=== PATIENT | female | born 1995 | race Caucasian/White ===

== ENCOUNTER 2019-01-18 23:00 | Emergency (ER) | payer BC ==
[2019-01-19] MEDS ORDERED: NORMAL SALINE 1000 ML 1,000 ML IV ONE (01:25)
--- NOTE | 2019-01-19 01:30 | ER Document Report ---
ED GI/ - General Chief Complaint: OB Problem (<20wks) Stated Complaint: ABDOMINAL CRAMPING Time Seen by Provider: 01/19/19 01:10 Primary Care Provider: DENI SAENZ MD [Primary Care Provider] - Follow up as needed Notes: Patient is a 23-year-old female, G1, P0 at 18 weeks gestation by first trimester ultrasound, that comes emergency department for chief complaint of mid to lower abdominal/pelvic cramping and possible small amount of spotting noticed when wiping after the bathroom earlier this evening. Patient also states she has had some waves of nausea and she felt lightheaded earlier but this past. She denies headache, shortness of breath, chest pain, flank pain, passage of fluids. She denies any current symptoms. She states she believes she has felt the baby move today but she is not sure. TRAVEL OUTSIDE OF THE [place] IN LAST 30 DAYS: No Past Medical History - General Information source: Patient - Social History Smoking Status: Never Smoker Frequency of alcohol use: None Drug Abuse: None Lives with: Family Family History: Reviewed & Not Pertinent Psychiatric Medical History: Reports: Hx Anxiety, Hx Depression - Immunizations Immunizations up to date: Yes Hx Diphtheria, Pertussis, Tetanus Vaccination: Yes Review of Systems - Review of Systems Constitutional: No symptoms reported EENT: No symptoms reported Cardiovascular: No symptoms reported Respiratory: No symptoms reported Gastrointestinal: No symptoms reported Genitourinary: No symptoms reported Female Genitourinary: See HPI Musculoskeletal: No symptoms reported Skin: No symptoms reported Hematologic/Lymphatic: No symptoms reported Neurological/Psychological: No symptoms reported Physical Exam - Vital signs Vitals: Temp Pulse Resp BP Pulse Ox 97.9 F 93 18 114/60 97 01/18/19 23:14 01/18/19 23:14 01/18/19 23:14 01/18/19 23:14 01/18/19 23:14 - Notes Notes: GENERAL: Alert, interacts well. No acute distress. HEAD: Normocephalic, atraumatic. EYES: Pupils equal, round, and reactive to light. Extraocular movements intact. ENT: Oral mucosa moist, tongue midline. Oropharynx unremarkable. Airway patent. LUNGS: Clear to auscultation bilaterally, no wheezes, rales, or rhonchi. No respiratory distress. HEART: Regular rate and rhythm. No murmur ABDOMEN: Gravid abdomen. Soft, non-tender. Non-distended. Bowel sounds present in all 4 quadrants. GENITOURINARY: Deferred EXTREMITIES: Moves all 4 extremities spontaneously. No edema, normal radial and dorsalis pedis pulses bilaterally. No cyanosis. BACK: no cervical, thoracic, lumbar midline tenderness. No saddle anesthesia, normal distal neurovascular exam. Moves all extremities in full range of motion. NEUROLOGICAL: Alert and oriented x3. Normal speech. Cranial nerves II through XII grossly intact. PSYCH: Normal affect, normal mood. SKIN: Warm, dry, normal turgor. No rashes or lesions noted. Course - Re-evaluation Re-evalutation: Patient is well-appearing on my evaluation. She has no abdominal tenderness, she denies current vaginal bleeding, her vital signs are unremarkable. CBC, chemistry nonspecific with no acute findings. Urinalysis shows large leukocyte esterase and white blood cells but this is equally as contaminated. Patient with no urinary symptoms. Discussed with patient, this was cultured. Ultrasound showing living intrauterine at 18 weeks, no evidence of placenta previa or abruption. No concerning findings. RhoGam is indicated with patient's blood type being a negative. I discussed this with patient, she was provided with a dose of this. I am unsure what patient's specific cause of her symptoms were, she was given IV fluids here, I discussed pelvic precautions, follow-up, and return precautions in detail. Patient and significant other state understanding and agreement with plan. Stable at time of discharge. - Vital Signs Vital signs: Temp Pulse Resp BP Pulse Ox 97.6 F 82 16 104/55 L 98 01/19/19 04:24 01/19/19 04:24 01/19/19 04:24 01/19/19 04:24 01/19/19 04:24 - Laboratory Result Diagrams: 01/19/19 01:43 01/19/19 01:43 Laboratory results interpreted by me: 01/19/19 01/19/19 01/19/19 01:43 01:43 03:02 RBC 3.59 L MCV 101 H MCH 35.9 H Sodium 135.8 L AST 13 L Alkaline Phosphatase 37 L Total Protein 5.9 L Albumin 3.4 L Urine Urobilinogen 2.0 H Ur Leukocyte Esterase LARGE H Discharge - Discharge Clinical Impression: Abdominal cramping Condition: Stable Disposition: HOME, SELF-CARE Additional Instructions: You have been rehydrated. The exact cause of your cramping is uncertain at this time. Your ultrasound does not show any concerning findings. Because of the possible spotting along with the cramping I do recommend pelvic rest for the next several days (avoid any significant physical activity including running, jumping, heavy lifting, sexual intercourse). Follow-up with [facility] for additional management. Return if you worsen including return your severe pain, heavy bleeding, or any other concerning or worsening symptoms. Forms: Return to Work Referrals: DENI SAENZ MD [Primary Care Provider] - Follow up as needed
[2019-01-19 01:52] LABS: ABSOLUTE LYMPHOCYTES (AUTO) 1.7 10^3/uL (0.5-4.7); ABSOLUTE MONOCYTES (AUTO) 0.5 10^3/uL (0.1-1.4); ABSOLUTE NEUT (AUTO) 7.7 10^3/uL (1.7-8.2); BASOPHILS % (AUTO) 0.4 % (0-2); EOSINOPHILS % (AUTO) 0.3 % (0-6); HEMATOCRIT 36.4 % (36.0-47.0); HEMOGLOBIN 12.9 g/dL (12.0-15.5); LYMPHOCYTES % (AUTO) 16.9 % (13-45); MEAN CORPUSCULAR HEMOGLOBIN 35.9 pg (27.0-33.4); MEAN CORPUSCULAR HGB CONC 35.4 g/dL (32.0-36.0); MEAN CORPUSCULAR VOLUME 101 fl (80-97); MONOCYTES % (AUTO) 4.6 % (3-13); PLATELET COUNT 163 10^3/uL (150-450); RED BLOOD COUNT 3.59 10^6/uL (3.72-5.28); SEGMENTED NEUTROPHILS % (AUTO) 77.8 % (42-78); TOTAL CELLS COUNTED % (AUTO) 100 %; WHITE BLOOD COUNT 9.9 10^3/uL (4.0-10.5)
[2019-01-19 02:12] LABS: ALANINE AMINOTRANSFERASE 17 U/L (9-52); ALBUMIN 3.4 g/dL (3.5-5.0); ALKALINE PHOSPHATASE 37 U/L (38-126); ANION GAP 5 (5-19); ASPARTATE AMINO TRANSFERASE 13 U/L (14-36); BILIRUBIN,DIRECT 0.2 mg/dL (0.0-0.4); BILIRUBIN,TOTAL 0.5 mg/dL (0.2-1.3); BLOOD UREA NITROGEN 13 mg/dL (7-20); CALCIUM 8.7 mg/dL (8.4-10.2); CARBON DIOXIDE 26 mmol/L (22-30); CHLORIDE 105 mmol/L (98-107); GLUCOSE 89 mg/dL (75-110); POTASSIUM 4.3 mmol/L (3.6-5.0); SODIUM 135.8 mmol/L (137-145); TOTAL PROTEIN 5.9 g/dL (6.3-8.2)
--- NOTE | 2019-01-19 02:38 | RADIOLOGY REPORT (SQ) ---
EXAM DESCRIPTION: US LIMITED COMPLETED DATE/TME: 01/19/2019 01:25 CLINICAL HISTORY: 23 years, Female, abd pain, 18 weeks, vaginal spotting COMPARISON: None. TECHNIQUE: Transabdominal pelvic ultrasound LIMITATIONS: None. FINDINGS: A single live intrauterine is identified in the cephalic position. The maternal cervix is closed and measures approximately 3.3 cm in length. The heart rate is 153 bpm. The placenta is posterior. No evidence of placental abruption or placenta previa. Biometry: BPD: 4.22 cm = 18 weeks 5 days. HC: 15.46 cm = 18 weeks 3 days. AC: 13.11 cm = 18 weeks 4 days. FL: 2.80 cm = 18 weeks 4 days. Ratios (%): FL/AC: 21.4 (20-24). FL/BPD: 66.4 (71-87). HC/AC: 1.18 (1.07-1.29). CI: 86.5 (70-86). EFW = 248 grams Clinical: LMP: 09/12/2018. MA: 18 weeks three days. DORIAN: 06/19/2019. Ultrasound: MA: 18 weeks four days. DORIAN: 06/18/2019. IMPRESSION: Single live intrauterine , as described above. copyright 2010 [employer]- All Rights Reserved
[2019-01-19 03:50] LABS: APPEARANCE,URINE SLIGHTLY-CLOUDY; BILIRUBIN,URINE NEGATIVE (NEGATIVE); COLOR,URINE YELLOW; GLUCOSE, URINE NEGATIVE (NEGATIVE); KETONES,URINE NEGATIVE (NEGATIVE); LEUKOCYTE ESTERASE,URINE LARGE (NEGATIVE); NITRITE,URINE NEGATIVE (NEGATIVE); PROTEIN,URINE NEGATIVE (NEGATIVE); URINE SPECIFIC GRAVITY 1.021
[2019-01-19 04:36] VITALS: BP 104/55
== END 2019-01-19 04:35 | disposition home or self-care (01) ==
LOC: ER 23:00
DX: O26.892 Other specified pregnancy related conditions, second trimester (principal); R10.2 Pelvic and perineal pain; R11.0 Nausea; R42 Dizziness and giddiness; O26.852 Spotting complicating pregnancy, second trimester; O36.0920 Maternal care for other rhesus isoimmunization, second trimester, not applicable or unspecified; Z3A.18 18 weeks gestation of pregnancy
CPT/HCPCS: 99284; 96360; 86900; 86901; 36415; 87086; 86850; 85025; 80053; 81001; 76815; J2790; J7030

== ENCOUNTER 2019-06-10 09:33 | Outpatient (CLI) | payer BC, MEDICAID | END 2019-06-10 10:46 | disposition home or self-care (01) | LOC: LC 09:33 | PROVIDERS: ATTEND Obstetrics & Gynecology | PROC: 4A1HXCZ Monitoring of Products of Conception, Cardiac Rate, External Approach (ICD-10-PCS; principal; 2019-06-10) | DX: O47.1 False labor at or after 37 completed weeks of gestation (principal); Z3A.38 38 weeks gestation of pregnancy ==

== ENCOUNTER 2019-06-25 05:55 | Outpatient (CLI) | payer BC, MEDICAID ==
--- NOTE | 2019-06-25 06:40 | Non Stress Test Report ---
Non Stress Test Datetime Report Generated by CPN: 06/25/2019 06:40 DEMOGRAPHIC EGA NST: 40.6 INDICATION Indication for Study (NST) Other: gestational age greater than 32 weeks VITAL SIGNS Temperature - NST: 98.0 Pulse - NST: 106 RESP - NST: 16 NBPSYS NST: 122 NBPDIA NST: 87 MONITORING Monitor Explained: Monitor Explained; Test Explained; Patient Verbalized Understanding Time on Monitor: 06/25/2019 06:10 Time off Monitor: 06/25/2019 06:33 NST Duration: 23 NST INTERVENTIONS NST Interventions: PO Hydration Physician Notified NST: Dr. Dunn BABY A Movement : Present Contraction Frequency : x1 FHR Baseline : 120 Accelerations : 15X15 Decelerations : None Variability : Moderate 6-25bpm NST Review: Meets Criteria for Reactive NST NST Review and Verified By : Meredith Sorensen RN NST Results: Reactive NST REPORT Report Trigger: Send Report
[2019-06-25 07:27] LABS: APPEARANCE,URINE CLOUDY; BILIRUBIN,URINE NEGATIVE (NEGATIVE); COLOR,URINE YELLOW; GLUCOSE, URINE NEGATIVE (NEGATIVE); KETONES,URINE NEGATIVE (NEGATIVE); LEUKOCYTE ESTERASE,URINE LARGE (NEGATIVE); NITRITE,URINE NEGATIVE (NEGATIVE); PROTEIN,URINE 30 mg/dL (NEGATIVE); UROBILINOGEN,URINE NEGATIVE mg/dL (<2.0)
[2019-06-25 07:43] LABS: URINE AMPHETAMINES SCREEN NEGATIVE; URINE BARBITURATES SCREEN NEGATIVE; URINE BENZODIAZEPINES SCREEN NEGATIVE; URINE COCAINE SCREEN NEGATIVE; URINE MARIJUANA (THC) SCREEN NEGATIVE; URINE METHADONE SCREEN NEGATIVE; URINE PHENCYCLIDINE SCREEN NEGATIVE
== END 2019-06-25 09:19 | disposition home or self-care (01) ==
LOC: LC 05:55
PROVIDERS: ATTEND Student in an Organized Health Care Education/Training Program
PROC: 4A1HXCZ Monitoring of Products of Conception, Cardiac Rate, External Approach (ICD-10-PCS; principal; 2019-06-25)
DX: O48.0 Post-term pregnancy (principal); Z3A.40 40 weeks gestation of pregnancy
CPT/HCPCS: 59025; 80307; 81005

== ENCOUNTER 2019-06-25 22:01 | Inpatient (IN) | payer BC, MEDICAID ==
--- NOTE | 2019-06-25 22:34 | Admission Physical ---
Datetime Report Generated by CPN: 06/25/2019 22:33 CURRENT ADMISSION Chief Complaint: Uterine Contractions Indication for Induction: Post Dates Admit Impression : Term, Intrauterine Admit Plan: Admit to Unit ALLERGIES Medication Allergies: No Medication Allergies: No Known Allergies (06/25/2019) Latex: No Latex Allergies Food Allergies: none Environmental Allergies: none OBSTETRICAL HISTORY EDC: 06/19/2019 00:00 : 1 Para: 0 Term: 0 : 0 SAB: 0 IAB: 0 Ectopic: 0 Livin Cesareans: 0 VBACs: 0 Multiple Births: 0 Gestational Diabetes: No Rh Sensitization: No Incompetent Cervix: No SASHA: No Infertility: No ART Treatment: No Uterine Anomaly: No IUGR: No Hx Previous C/S: No Macrosomia: No Hx Loss/Stillborn: No PIH: No Hx : No Placenta Previa/Abruption: No Depression/PP Depression: No PTL/PROM: No Post Hemorrhage: No Current Procedures: Ultrasound Obstetrical History Comments: G1 - current SEE RECORDS Alcohol: No Marijuana : No Cocaine: No Other Illicit Drugs: No Cigarettes: Former Smoker. 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 Heart Disease: No Hosp/Surgery: No Autoimmune Disorder: No Anesthetic Complications: No Kidney Disease: Yes Abnormal Pap Smear: No Neuro/Epilepsy: No Psychiatric Disorders: Yes Other Medical Diseases: No Hepatitis/Liver Disease: No Significant Family History: No Varicosities/Phlebitis: No Trauma/Violence : No Thyroid Dysfunction: No Medical History Comments: anxiety and depression, Hx: UTI INFECTIOUS HISTORY Gonorrhea: No Genital Herpes: No Chlamydia: Yes Tuberculosis: No Syphilis: No Hepatitis: No HIV/AIDS Exposure: No Rash or Viral Illness: No HPV: No Infectious History Comments: hx of chlamydia in PHYSICAL EXAM General: Normal HEENT: Normal Neurologic: Normal Thyroid: Normal Heart: Normal Lungs: Normal Breast: Deferred Back: Normal Abdomen: Normal Genitourinary Exam: Normal Extremities: Normal DTRs: Normal Pelvic Type: Adequate Vital Signs: Reviewed VAGINAL EXAM Dilatation: 4 Effacement: 80 Station: -2 MEMBRANES Pooling: Negative Membranes: Intact FETUS A EGA: 40.6 Monitoring: External US FHR- Baseline: 120 Variability: Moderate 6-25bpm Decelerations: None FHR Category: Category I Presentation: Vertex Admit Comment: admit for labor o/w induction in the am. PLANS FOR LABOR AND DELIVERY Labor and Delivery: None Pain Management: Epidural Feeding Preference: Breast Benefit of Breast Feed Discussed: Yes Circumcision: N/A INFORMED CONSENT Signature: with User ID: [email or web address]
[2019-06-25 22:46] LABS: ABSOLUTE LYMPHOCYTES (AUTO) 1.6 10^3/uL (0.5-4.7); ABSOLUTE MONOCYTES (AUTO) 0.8 10^3/uL (0.1-1.4); ABSOLUTE NEUT (AUTO) 8.7 10^3/uL (1.7-8.2); BASOPHILS % (AUTO) 0.3 % (0-2); EOSINOPHILS % (AUTO) 0.3 % (0-6); HEMATOCRIT 34.1 % (36.0-47.0); HEMOGLOBIN 12.2 g/dL (12.0-15.5); LYMPHOCYTES % (AUTO) 14.1 % (13-45); MEAN CORPUSCULAR HEMOGLOBIN 36.9 pg (27.0-33.4); MEAN CORPUSCULAR HGB CONC 35.8 g/dL (32.0-36.0); MEAN CORPUSCULAR VOLUME 103 fl (80-97); MONOCYTES % (AUTO) 6.9 % (3-13); PLATELET COUNT 152 10^3/uL (150-450); RED BLOOD COUNT 3.31 10^6/uL (3.72-5.28); SEGMENTED NEUTROPHILS % (AUTO) 78.4 % (42-78); TOTAL CELLS COUNTED % (AUTO) 100 %; WHITE BLOOD COUNT 11.1 10^3/uL (4.0-10.5)
[2019-06-25 22:49] LABS: APPEARANCE,URINE CLOUDY; BILIRUBIN,URINE NEGATIVE (NEGATIVE); COLOR,URINE YELLOW; GLUCOSE, URINE NEGATIVE (NEGATIVE); KETONES,URINE NEGATIVE (NEGATIVE); LEUKOCYTE ESTERASE,URINE LARGE (NEGATIVE); NITRITE,URINE NEGATIVE (NEGATIVE); PROTEIN,URINE 30 mg/dL (NEGATIVE); URINE SPECIFIC GRAVITY 1.019
[2019-06-25 23:22] LABS: URINE AMPHETAMINES SCREEN NEGATIVE; URINE BARBITURATES SCREEN NEGATIVE; URINE BENZODIAZEPINES SCREEN NEGATIVE; URINE COCAINE SCREEN NEGATIVE; URINE MARIJUANA (THC) SCREEN NEGATIVE; URINE METHADONE SCREEN NEGATIVE; URINE PHENCYCLIDINE SCREEN NEGATIVE
[2019-06-26] MEDS ORDERED: OXYTOCIN/NORMAL SALINE 20 UNIT/1,000 ML RTUINJ ONE (05:57)
[2019-06-26] MEDS ORDERED: LIDOCAINE 1% INJ-PF (10 MG/ML) 30 ML SDV ONE ×2 (05:57→13:26)
[2019-06-26] MEDS ORDERED: OXYTOCIN 10 UNIT/ML VIAL ONE ×2 (05:57→13:26)
[2019-06-26] MEDS ORDERED: MISOPROSTOL 0.2 MG TABLET ONE ×2 (05:57→13:26)
[2019-06-26] MEDS ORDERED: OXYTOCIN/NORMAL SALINE 20 UNIT/1,000 ML RTUINJ IV PRN ×2 (06:14→15:19)
[2019-06-26] MEDS ORDERED: EPHEDRINE SULFATE INJ 50 MG/1 ML AMPULE ONE (09:08)
[2019-06-26] MEDS ORDERED: FENTANYL CITRATE INJ/PF 100 MCG/2 ML AMPUL ONE (09:08)
[2019-06-26] MEDS ORDERED: PHENYLEPHRINE HCL INJ/PF 10 MG/1 ML SDV ONE (09:08)
[2019-06-26] MEDS ORDERED: FENTANYL/BUPIVACAINE/NS/PF 300 MCG/150 ML RTUINJ EPI ONE (09:09)
[2019-06-26] MEDS ORDERED: BUPIVACAINE HCL 0.25 % INJ/PF (2.5 MG/1 ML) 30 ML VIAL ONE (09:09)
[2019-06-26] MEDS ORDERED: DIBUCAINE 1% OINTMENT 28 GM TP PRN (15:19)
[2019-06-26] MEDS ORDERED: BENZOCAINE/MENTHOL AEROSOL SPRAY 56 ML TOP PRN (15:19)
[2019-06-26] MEDS ORDERED: ZOLPIDEM TARTRATE 5 MG TABLET PO PRN (15:19)
[2019-06-26] MEDS ORDERED: DIPH/PERTUSS(ACELL)/TETANUS VAC/PF 0.5 ML SYR (>=10YO) IM PRN (15:19)
[2019-06-26] MEDS ORDERED: MEASLES,MUMPS&RUBELLA VACC/PF 0.5 ML VIAL SUBCUT PRN (15:19)
--- NOTE | 2019-06-26 16:42 | Delivery Summary ---
Del Sum A-C Datetime Report Generated by CPN: 06/26/2019 16:41 DELIVERY PERSONNEL DELIVERY PERSONNEL: [id number] Delivery Doctor:: Kelly Robles CNM Labor and Delivery Nurse:: Elif Lan RNhighway landscape architect Nurse:: BLU [place] Nursery Nurse:: Veronica Chavira RN Drum Sander/EMAIL DESIGNER: Sameera Hadley, ST MATERNAL INFORMATION Delivery Anesthesia: Epidural Medications After Delivery: Pitocin Bolus-Please Comment; Pitocin Drip 20 Units/1000ml NSS; Cytotec 800mcg Per Rectum/Vagina Delivery QBL: 500 Maternal Complications: None Provider Comments: SVDVF over intact perineum with tight nuchal cord, unable to reduce, delivered through. Infant OA to JACLYN, vigorous, placed on mothers abd. Cord clamped x 2 cut per FOB. Placenta delivered spont via armstrong with trailing membranes. Lacerations repaired as above, then large clots noted after fundal rub. Pieces of membranes removed x 2 in [place]ER[place] with fundal rub externally and uterus internally contrated. Cytotec 800mcg placed rectally. Mother and infant stable. Apgars 9,9. QBL TBD per RN. LABOR SUMMARY EDC: 06/19/2019 00:00 No. Babies in Womb: 1 Attempted: Yes Labor Anesthesia: Epidural LABOR INFORMATION Reason for Induction: Post Dates Onset of Labor: 06/26/2019 06:07 Complete Dilatation: 06/26/2019 14:13 Oxytocin: Induction Group B Beta Strep: negative Antibiotics # of Doses: n/a Antibiotics Time of Last Dose: n/a Name of Antibiotic Given: n/a Steroids Given: None Reason Steroids Not Administered: Not Applicable MEMBRANES Membranes Rupture Method: Artificial Rupture of Membranes: 06/26/2019 11:20 Length of Rupture (hr): 3.03 Amniotic Fluid Color: Clear Amniotic Fluid Amount: Small Amniotic Fluid Odor: Normal STAGES OF LABOR Stage 1 hr: 8 Stage 1 min: 6 Stage 2 hr: 0 Stage 2 min: 9 Stage 3 hr: 0 Stage 3 min: 5 Total Time in Labor hr: 8 Total Time in Labor min: 20 VAGINAL DELIVERY Laceration #1: Periurethral Laceration Extension #1: First Degree Other Laceration: 1* bilateral labial repaired with 3.0 chromic suture Laceration Repair: Yes Laceration Repair Note: rt labia edges reapproximated CSECTION DELIVERY Primary Indication: N/A BABY A INFORMATION Infant Delivery Date/Time: 06/26/2019 14:22 Method of Delivery: Vaginal Born in Route : No : N/A Forceps: N/A Vacuum Extraction: N/A Shoulder Dystocia : No PRESENTATION/POSITION BABY A Presentation: Cephalic Cephalic Presentation: Vertex Vertex Position: Right Occipital Anterior Breech Presentation: N/A PLACENTA INFORMATION BABY A Placenta Delivery Time : 06/26/2019 14:27 Placenta Method of Delivery: Spontaneous Placenta Status: Retained SCORES BABY A Heart Rate 1 min: >100 bpm Resp Effort 1 min: Good Cry Reflex Irritability 1 min: Cough or Sneeze or Pulls Away Muscle Tone 1 min: Active Motion Color 1 min: Body [place], Extremities Blue Resuscitation Effort 1 min: Tactile Stimulation SCORE 1 MIN: 9 Heart Rate 5 min: >100 bpm Resp Effort 5 min: Good Cry Reflex Irritability 5 min: Cough or Sneeze or Pulls Away Muscle Tone 5 min: Active Motion Color 5 min: Body [place], Extremities Blue SCORE 5 MIN: 9 INFANT INFORMATION BABY A Gestational Age at Delivery: 41.0 Gestational Status: Late Term- 41- 41.6 Weeks Outcome : Liveborn Condition : Stable Infant Sex: Female IDENTIFICATION BABY A Infant Verification Date/Time: 06/26/2019 14:46 ID Band Number: [id number] Mother's Name Verified: Yes RN Verifying Infant: Bailey Lan, RN Additional Verifying Personnel: Christinasg Hadley, ST WEIGHT/LENGTH BABY A Infant Birthweight (gm): 3038 Infant Weight (lb): 6 Weight (oz): 11 Length (in): 20.50 Length (cm): 52.07 CORD INFORMATION BABY A No. Cord Vessels: 3 Nuchal Cord : Around Neck x1, Tight Cord Blood Taken: Yes-For Eval (Mom's Blood Type - or O+) Suction: None ASSESSMENT BABY A Infant Complications: Multiple Variable Decels Physical Findings at Delivery: Within Normal Limits Respirations: Appears Normal Skin to Skin: Yes Supervisor Coil Winding/ALS Called : No Care By: C Fan RN BABY B INFORMATION : N/A SIGNATURES Assignment: Rosalina Rodriguez MD Signature: with User ID: [email or web address] : with User ID: [email or web address] : I was personally available for consultation and serving as supervising physician for the MLP.
[2019-06-26] MEDS: FERROUS SULFATE 325 MG TABLET PO SCH (17:55)
[2019-06-26] MEDS: DOCUSATE SODIUM 100 MG CAPSULE PO SCH (17:55)
[2019-06-26] MEDS: IBUPROFEN 800 MG TABLET PO SCH (21:53)
[2019-06-27] MEDS: IBUPROFEN 800 MG TABLET PO SCH ×3 (06:33→21:06)
[2019-06-27 08:59] LABS: ABSOLUTE LYMPHOCYTES (AUTO) 1.1 10^3/uL (0.5-4.7); ABSOLUTE MONOCYTES (AUTO) 0.6 10^3/uL (0.1-1.4); ABSOLUTE NEUT (AUTO) 9.2 10^3/uL (1.7-8.2); BASOPHILS % (AUTO) 0.1 % (0-2); EOSINOPHILS % (AUTO) 0.3 % (0-6); HEMOGLOBIN 10.8 g/dL (12.0-15.5); LYMPHOCYTES % (AUTO) 10.1 % (13-45); MEAN CORPUSCULAR HEMOGLOBIN 37.7 pg (27.0-33.4); MEAN CORPUSCULAR HGB CONC 35.9 g/dL (32.0-36.0); MEAN CORPUSCULAR VOLUME 105 fl (80-97); MONOCYTES % (AUTO) 5.5 % (3-13); PLATELET COUNT 127 10^3/uL (150-450); RED BLOOD COUNT 2.85 10^6/uL (3.72-5.28); TOTAL CELLS COUNTED % (AUTO) 100 %
[2019-06-27 09:38] LABS: HEMOGLOBIN 10.8 g/dL (12.0-15.5); MEAN CORPUSCULAR HEMOGLOBIN 37.7 pg (27.0-33.4); MEAN CORPUSCULAR VOLUME 105 fl (80-97); RED BLOOD COUNT 2.85 10^6/uL (3.72-5.28)
[2019-06-27 09:39] LABS: MEAN CORPUSCULAR HGB CONC 35.9 g/dL (32.0-36.0); PLATELET COUNT 127 10^3/uL (150-450)
[2019-06-27] MEDS: DOCUSATE SODIUM 100 MG CAPSULE PO SCH ×2 (10:44→18:02)
[2019-06-27] MEDS: SENNOSIDES/DOCUSATE 8.6-50 MG 1 EACH TABLET PO SCH (10:45)
[2019-06-27] MEDS: FERROUS SULFATE 325 MG TABLET PO SCH ×2 (10:45→18:02)
[2019-06-27] MEDS: PRENATAL VITAMIN W DHA CAPSULE PO SCH (10:45)
--- NOTE | 2019-06-27 10:56 | PDOC PROGRESS REPORT ---
Subjective-OB Progress Note for:: 06/27/19 Subjective: Pt doing well, no concerns. She reports light bleeding, reg diet and voiding without difficulty. Physical Exam (OB) Vital Signs: Temp Pulse Resp BP Pulse Ox 97.9 F 107 H 18 113/64 98 06/26/19 20:07 06/26/19 20:07 06/26/19 20:07 06/26/19 20:07 06/26/19 20:07 - PIH/Pre-Eclampsia DTR's: 1 + Clonus: Negative Headache: Absent Epigastric Pain: No Visual Changes: No - Lochia Lochia Amount: Small 10-25 ml Lochia Color: Rubra/Red - Abdomen Description: Soft Hernia Present: No Fundal Description: Firm, Midline Fundal Height: u/u - u/2 Objective-Diagnostic Laboratory: 06/27/19 08:00 06/27/19 06/27/19 08:00 08:00 WBC 11.0 H 11.0 H RBC 2.85 L 2.85 L Hgb 10.8 L 10.8 L Hct 30.0 L 30.0 L MCV 105 H 105 H MCH 37.7 H 37.7 H MCHC 35.9 35.9 RDW 15.0 H 15.0 H Plt Count 127 L 127 L Seg Neutrophils % 84.0 H Assessment and Plan(PN) - Assessment and Plan (1) Laceration, obstetrical, first degree Is this a current diagnosis for this admission?: Yes (2) hemorrhage Qualifiers: hemorrhage type: third-stage Qualified Code(s): O72.0 - Third- stage hemorrhage Is this a current diagnosis for this admission?: Yes (3) Vaginal delivery Is this a current diagnosis for this admission?: Yes - Time Spent with Patient Time with patient: Less than 15 minutes Medications reviewed and adjusted accordingly: Yes - Disposition Anticipated Discharge: Home Within: within 24 hours
[2019-06-28] MEDS: IBUPROFEN 800 MG TABLET PO SCH (05:55)
[2019-06-28 08:03] VITALS: BP 107/71
--- NOTE | 2019-06-28 10:37 | PDOC DISCHARGE SUMMARY ---
Impression - Admit/DC Date/PCP Admission Date/Primary Care Provider: 06/25/19 22:20 DENI SAENZ MD Discharge Date: 06/28/19 - Discharge Diagnosis (1) Laceration, obstetrical, first degree Is this a current diagnosis for this admission?: Yes (2) hemorrhage Is this a current diagnosis for this admission?: Yes (3) Vaginal delivery Is this a current diagnosis for this admission?: Yes - Additional Information Resuscitation Status: Full Code Discharge Diet: Regular Discharge Activity: Balance Activity w/Rest, Pelvic Rest [facility] [[facility]] Prescriptions: Ibuprofen [Motrin 800 mg Tablet] 800 mg PO Q8HP PRN #60 tablet PRN Reason: Home Medications: B12/Levomefolate Calcium/B-6 [Foltx Tablet] 1 tab PO DAILY 06/10/19 Ibuprofen [Motrin 800 mg Tablet] 800 mg PO Q8HP PRN #60 tablet 06/28/19 Results Laboratory Results: WBC 11.0 10^3/uL (4.0-10.5) H 06/27/19 08:00 WBC 11.0 10^3/uL (4.0-10.5) H 06/27/19 08:00 RBC 2.85 10^6/uL (3.72-5.28) L 06/27/19 08:00 RBC 2.85 10^6/uL (3.72-5.28) L 06/27/19 08:00 Hgb 10.8 g/dL (12.0-15.5) L 06/27/19 08:00 Hgb 10.8 g/dL (12.0-15.5) L 06/27/19 08:00 Hct 30.0 % (36.0-47.0) L 06/27/19 08:00 Hct 30.0 % (36.0-47.0) L 06/27/19 08:00 MCV 105 fl (80-97) H 06/27/19 08:00 MCV 105 fl (80-97) H 06/27/19 08:00 MCH 37.7 pg (27.0-33.4) H 06/27/19 08:00 MCH 37.7 pg (27.0-33.4) H 06/27/19 08:00 MCHC 35.9 g/dL (32.0-36.0) 06/27/19 08:00 MCHC 35.9 g/dL (32.0-36.0) 06/27/19 08:00 RDW 15.0 % (11.5-14.0) H 06/27/19 08:00 RDW 15.0 % (11.5-14.0) H 06/27/19 08:00 Plt Count 127 10^3/uL (150-450) L 06/27/19 08:00 Plt Count 127 10^3/uL (150-450) L 06/27/19 08:00 Lymph % (Auto) 10.1 % (13-45) L 06/27/19 08:00 [place] % (Auto) 5.5 % (3-13) 06/27/19 08:00 Eos % (Auto) 0.3 % (0-6) 06/27/19 08:00 Baso % (Auto) 0.1 % (0-2) 06/27/19 08:00 Absolute Neuts (auto) 9.2 10^3/uL (1.7-8.2) H 06/27/19 08:00 Absolute Lymphs (auto) 1.1 10^3/uL (0.5-4.7) 06/27/19 08:00 Absolute Monos (auto) 0.6 10^3/uL (0.1-1.4) 06/27/19 08:00 Absolute Eos (auto) 0.0 10^3/uL (0.0-0.6) 06/27/19 08:00 Absolute Basos (auto) 0.0 10^3/uL (0.0-0.2) 06/27/19 08:00 Seg Neutrophils % 84.0 % (42-78) H 06/27/19 08:00 Urine Color YELLOW 06/25/19 22:07 Urine Appearance CLOUDY 06/25/19 22:07 Urine pH 6.0 (5.0-9.0) 06/25/19 22:07 Ur Specific [place] 1.019 06/25/19 22:07 Urine Protein 30 mg/dL (NEGATIVE) H 06/25/19 22:07 Urine Glucose (UA) NEGATIVE mg/dL (NEGATIVE) 06/25/19 22:07 Urine Ketones NEGATIVE mg/dL (NEGATIVE) 06/25/19 22:07 Urine Blood LARGE (NEGATIVE) H 06/25/19 22:07 Urine Nitrite NEGATIVE (NEGATIVE) 06/25/19 22:07 Urine Bilirubin NEGATIVE (NEGATIVE) 06/25/19 22:07 Urine Urobilinogen 2.0 mg/dL (<2.0) H 06/25/19 22:07 Ur Leukocyte Esterase LARGE (NEGATIVE) H 06/25/19 22:07 Urine Ascorbic Acid NEGATIVE (NEGATIVE) 06/25/19 22:07 Urine Opiates Screen NEGATIVE 06/25/19 22:07 Urine Methadone Screen NEGATIVE 06/25/19 22:07 Ur Barbiturates Screen NEGATIVE 06/25/19 22:07 Ur Phencyclidine Scrn NEGATIVE 06/25/19 22:07 Ur Amphetamines Screen NEGATIVE 06/25/19 22:07 U Benzodiazepines Scrn NEGATIVE 06/25/19 22:07 Urine Cocaine Screen NEGATIVE 06/25/19 22:07 U Marijuana (THC) Screen NEGATIVE 06/25/19 22:07 RPR NONREACTIVE (NONREACTIVE) 06/25/19 22:32 Blood Type A NEGATIVE 06/25/19 22:32 Antibody Screen POSITIVE 06/25/19 22:32 Antibody Identification RHOGAM INDUCED ANTI-D 06/25/19 22:32
[2019-06-28] MEDS: FERROUS SULFATE 325 MG TABLET PO SCH (11:10)
[2019-06-28] MEDS: PRENATAL VITAMIN W DHA CAPSULE PO SCH (11:10)
[2019-06-28] MEDS: SENNOSIDES/DOCUSATE 8.6-50 MG 1 EACH TABLET PO SCH (11:11)
[2019-06-28] MEDS: DOCUSATE SODIUM 100 MG CAPSULE PO SCH (11:11)
== END 2019-06-28 11:55 | disposition home or self-care (01) | DRG 807 ==
LOC: LC 22:01 → LR 22:20 → 2S 06-26 17:09
PROVIDERS: ADMIT Obstetrics & Gynecology; ATTEND Obstetrics & Gynecology
PROC: 10E0XZZ Delivery of Products of Conception, External Approach (ICD-10-PCS; principal; 2019-06-26)
PROC: 0HQ9XZZ Repair Perineum Skin, External Approach (ICD-10-PCS; 2019-06-26)
PROC: 10907ZC Drainage of Amniotic Fluid, Therapeutic from Products of Conception, Via Natural or Artificial Opening (ICD-10-PCS; 2019-06-26)
DX: O48.0 Post-term pregnancy (principal); O70.0 First degree perineal laceration during delivery; O69.1XX0 Labor and delivery complicated by cord around neck, with compression, not applicable or unspecified; Z3A.41 41 weeks gestation of pregnancy; Z37.0 Single live birth
CPT/HCPCS: 36415; 80307; 81005; 85025; 85027; 86592; 86850; 86870; 86900; 86901; 94760; J2370; J2590; J3010; J3490

== ENCOUNTER → 2019-09-29 | Outpatient (CLI) | payer SELFPAY ==
[2019-09-29 13:29] LABS: ABSOLUTE EOSINOPHILS # (AUTO) 0.1 10^3/uL (0.0-0.6); ABSOLUTE LYMPHOCYTES (AUTO) 1.6 10^3/uL (0.5-4.7); ABSOLUTE MONOCYTES (AUTO) 0.4 10^3/uL (0.1-1.4); ABSOLUTE NEUT (AUTO) 3.7 10^3/uL (1.7-8.2); BASOPHILS % (AUTO) 0.2 % (0-2); EOSINOPHILS % (AUTO) 1.2 % (0-6); HEMATOCRIT 41.4 % (36.0-47.0); HEMOGLOBIN 14.9 g/dL (12.0-15.5); LYMPHOCYTES % (AUTO) 27.8 % (13-45); MEAN CORPUSCULAR HEMOGLOBIN 34.8 pg (27.0-33.4); MEAN CORPUSCULAR HGB CONC 36.1 g/dL (32.0-36.0); MEAN CORPUSCULAR VOLUME 96 fl (80-97); PLATELET COUNT 177 10^3/uL (150-450); RED CELL DISTRIBUTION WIDTH 13.7 % (11.5-14.0); SEGMENTED NEUTROPHILS % (AUTO) 63.8 % (42-78); TOTAL CELLS COUNTED % (AUTO) 100 %; WHITE BLOOD COUNT 5.8 10^3/uL (4.0-10.5)
[2019-09-29 13:55] LABS: ALBUMIN 4.3 g/dL (3.5-5.0); ALKALINE PHOSPHATASE 52 U/L (38-126); ANION GAP 6 (5-19); ASPARTATE AMINO TRANSFERASE 23 U/L (14-36); BILIRUBIN,TOTAL 0.6 mg/dL (0.2-1.3); BLOOD UREA NITROGEN 14 mg/dL (7-20); CALCIUM 9.9 mg/dL (8.4-10.2); CARBON DIOXIDE 27 mmol/L (22-30); CHLORIDE 105 mmol/L (98-107); GLUCOSE 87 mg/dL (75-110)
== END ==
LOC: OD 12:48
PROVIDERS: ATTEND Physician Assistant
DX: J02.9 Acute pharyngitis, unspecified (principal)
CPT/HCPCS: 36415; 80053; 85025